=== PATIENT | female | born 1935 | race Caucasian/White ===

== ENCOUNTER 2016-11-25 13:43 | Emergency (ER) | payer MEDICARE, OTHER ==
[~2016-11-25 13:43] MED LIST: COZAAR 50MG TAB50 MG PO; CUBICIN 500 MG500 MG IV; LEVAQUIN500 MG PO; LORTAB 5-325 M1 EACH PO; NEURONTIN 300300 MG PO; NORVASC 5 MG TAB5 MG PO
[2016-11-25 16:16] LABS: HEMOGLOBIN 12.8 gm/dl (12.3-15.3); RED BLOOD COUNT 4.09 M/UL (4.00-5.10); WHITE BLOOD COUNT 5.9 K/UL (4.5-11.0)
== END 2016-11-25 19:45 | disposition home or self-care (01) ==
LOC: ER1 13:43
PROVIDERS: Physician Assistant
DX: N39.0 Urinary tract infection, site not specified (principal); I10 Essential (primary) hypertension; E03.9 Hypothyroidism, unspecified; Z79.899 Other long term (current) drug therapy
CPT/HCPCS: 36415; 80053; 81001; 83690; 85025; 87077; 87086; 87186; 96365; 99284; J0696; J7030; J7050

== ENCOUNTER → 2016-12-07 | Outpatient (CLI) | payer MEDICARE, OTHER | LOC: KOH-I 09:03 | DX: M54.5 Low back pain (principal); M47.814 Spondylosis without myelopathy or radiculopathy, thoracic region; M47.816 Spondylosis without myelopathy or radiculopathy, lumbar region | CPT/HCPCS: 72070; 72110 ==